=== PATIENT | male | born 1960 | race Two or more races ===

== ENCOUNTER 2018-11-20 08:30 | Emergency (ER) | payer OTHER ==
--- NOTE | 2018-11-20 09:36 | EDPHY ---
General - History Smoking Status: Never smoked Time Seen by Provider: 11/20/18 08:56 Narrative: CLINICAL IMPRESSION: Cerumen impaction, left otalgia ASSESSMENT/PLAN: 58-year-old male presents to the emergency department with left otalgia since 4 :00 a.m. This morning associated with decrease in hearing. On exam, patient has hard, deeply impacted cerumen bilaterally. I am unable to see either tympanic membrane and cannot rule out perforation. No evidence of mastoiditis. Cerumen irrigation was attempted in the ED however wax was too hard and impacted for complete removal today. I have recommended [id number] Debrox for wax softening over the next 2-5 days, repeat gentle irrigation by primary care or ENT. Warning signs return to ED sooner discussed and discharge. DIFFERENTIAL DX: Differential includes but not limited to acute otitis media, otitis externa, cerumen impaction, foreign body, TM perforation ED PROCEDURES: See lab and/or imaging results below Warm water irrigation used to irrigate cerumen from left ear without successful removal given consistency and deeply impacted nature of cerumen. CHIEF COMPLAINT: Left ear pain HPI: 58-year-old male presents to the emergency department with left ear pain that began at 4:00 a.m. This morning. Patient reports some muffled hearing from the left ear, no discharge, tinnitus, dizziness or vertigo. He has no history of prior ear surgery. He has not been ill recently and denies congestion, sore throat and dental pain. He took some ibuprofen early this morning with minimal relief. No pain to the right ear. He does use Q-Tips regularly PAST MEDICAL HISTORY: None reported See triage summary and nurse notes for addition applicable history REVIEW OF SYSTEMS: A full 10 point review of systems was negative except for those mentioned in HPI. PHYSICAL EXAM: General Appearance: Alert, oriented, appropriate, cooperative, NAD, well hydrated, non-toxic appearing, hypertensive, no hypoxia. HEENT: Bilateral TMs occluded by hard deeply impacted cerumen. No obvious otitis externa or laceration to external auditory canal. Patient reports no pain to the right ear although I am unable to see the tympanic membrane to rule out perforation. No evidence of mastoiditis. Oropharynx clear is no erythema or exudates, no tonsillar hypertrophy or asymmetry. Dentition without abnormality. Skin: Warm, dry, no rashes, no nodules on palpation. MEDICAL DECISION MAKING: Patient was seen independently. Secondary supervising physician at time of evaluation was: Dr. Kim. Diagnosis: Cerumen impaction, left ear pain . New, requires workup Summary: See Assessment and Plan for summary of ED visit Patient Progress: stable for discharge. (Gucci Bravo) Medical Decision Making: I did not see this patient while he was in the emergency department. However his care was discussed with the PA while the patient was in the department. I agree with treatment plan and management (Ismael Kim) - Objective Vital Signs: Initial Vital Signs Temperature (C) 37.1 C 11/20/18 08:41 Heart Rate 80 11/20/18 08:41 Respiratory Rate 16 11/20/18 08:41 Blood Pressure 137/118 H 11/20/18 08:41 O2 Sat (%) 93 11/20/18 08:41 O2 Delivery Mode Room Air Allergies/Adverse Reactions: No Known Allergies Allergy (Unverified 11/20/18 08:41) Home Medications: Medication Instructions Recorded Advil 11/20/18 Tylenol 11/20/18 Departure - Departure Disposition: Home, Routine, Self-Care Clinical Impression: Impacted cerumen of left ear Condition: Fair Instructions: Cerumen Impaction (ED) Additional Instructions: DISCHARGE INSTRUCTIONS FROM YOUR DOCTOR Thank you for visiting our emergency department today. You were treated by a physician print shop assistant today and your case was reviewed with our ED Attending physician. Please keep in mind that discharge from the emergency department does not mean that there is nothing wrong - it simply means that we have not identified an emergency condition that requires further evaluation or treatment in the hospital. You should always plan to follow up with primary care for re- evaluation of your condition in the next 2-3 days. If you have been referred to a specialist, please call as soon as possible (today or tomorrow) to schedule your follow up appointment at the appropriate time. PLEASE DO NOT USE Q-TIPS IN THE EAR, THIS WILL PACK WAX DEEPER INTO THE EAR. PLEASE CONSIDER USING DEBROX [id number] TO SOFTEN YEAR WAX. PLEASE USE THIS FOR 3-5 DAYS TO HELP SOFTEN WAX BEFORE ATTEMPTING TO IRRIGATE AGAIN. YOU CAN FOLLOW UP WITH PRIMARY CARE FOR IRRIGATION OR EAR NOSE AND THROAT. REFERRALS WERE GIVEN IF YOU DO NOT HAVE A PRIMARY CARE. RETURN TO THE EMERGENCY DEPARTMENT FOR SEVERE EAR PAIN, DISCHARGE OR BLEEDING FROM THE EAR, EAR SWELLING, HIGH FEVERS, OR ANY OTHER CONCERNS. People present with illnesses and injuries in different ways, and it is always possible that we have missed something. You may always return for re-evaluation if symptoms worsen or if they are not improving or if you develop new/different symptoms. Again, thank you for choosing our emergency department. We hope that you feel better. Referrals: NONE *PRIMARY CARE P,. [Primary Care Provider] - As per Instructions Tunde Holliday MD [Medical Doctor] - As per Instructions Steven Marquez MD [Medical Doctor] - As per Instructions Stand Alone Forms: Work Excuse
[2018-11-20 10:35] VITALS: BP 145/95
== END 2018-11-20 10:35 | disposition home or self-care (01) ==
PROC: 3E1B78Z Irrigation of Ear using Irrigating Substance, Via Natural or Artificial Opening (ICD-10-PCS; principal; 2018-11-20)
DX: H61.22 Impacted cerumen, left ear (principal); H92.02 Otalgia, left ear